=== PATIENT | female | born 1960 | race Caucasian/White ===

== ENCOUNTER 2017-04-10 21:41 | Inpatient (IN) | payer MEDICAID, OTHER ==
[2017-04-10 22:42] LABS: BASO % 0.9 % (0.0-2.0); EOS # 0.1 K/uL (0.0-0.7); HEMATOCRIT 26.9 % (34.0-47.0); LYMPH # 0.9 K/uL (1.0-4.3); LYMPH % 34.2 % (20.0-40.0); MEAN CELL VOLUME 79.3 fl (81.0-99.0); MEAN CORPUSCULAR HEMOGLOBIN 26.6 pg (27.0-31.0); MEAN CORPUSCULAR HGB CONC 33.6 g/dL (33.0-37.0); MEAN PLATELET VOLUME 7.8 fl (7.2-11.7); MONO # 0.4 K/uL (0.0-0.8); NEUT # 1.1 K/uL (1.8-7.0); NEUT % 42.9 % (50.0-75.0); NRBC % 0.2 % (0.0-0.0); RED CELL DISTRIBUTION WIDTH 16.6 % (11.5-14.5); WHITE BLOOD COUNT 2.5 K/uL (4.8-10.8)
--- NOTE | 2017-04-11 00:26 | ED PDOC ---
HPI: Nose Bleed Time Seen by Provider: 04/10/17 21:59 Chief Complaint (Nursing): ENT Problem History Per: Patient History/Exam Limitations: no limitations Onset/Duration Of Symptoms: Hrs Current Symptoms Are (Timing): Gone Now Location Of Bleeding: Both Nares Symptoms Have Been: Episodic Severity: Severe Associated Symptoms: Nasal Congestion. denies: Syncope, Lightheadedness, Bleeding From Gums, Nasal Drainage Anticoagulant/Antiplatlet Use?: No Recent Aspirin Use: No Additional Complaint(s): 56 y/o female who presents to the ED this evening complaining of heavy epistaxis that began 2 hours [facility] [employer]. Yesterday, she notes a small amount of nasal congestion and feels she may have cut herself when she rubbed her nose. On arrival, her bleeding resolved. No fever, chest pain, shortness of breath, antiplatelet use or ASA. PMD: Dr. Lucia - [place] Past Medical History Vital Signs: Last Vital Signs Temp 98.2 F 04/10/17 23:20 Pulse 92 H 04/10/17 23:20 Resp 18 04/10/17 23:20 BP 143/89 04/10/17 23:20 Pulse Ox 99 04/10/17 23:20 - Medical History PMH: Anxiety, Arthritis, HTN - Surgical History Surgical History: No Surg Hx - Family History Family History: States: Unknown Family Hx - Social History Current smoker - smoking cessation education provided: No Ex-Smoker (has not smoked in the last 12 months): No - Immunization History Hx Tetanus Toxoid Vaccination: No Hx Influenza Vaccination: No Hx Pneumococcal Vaccination: No - Home Medications Home Medications: Ambulatory Orders Medication Instructions Recorded Ergocalciferol (Vitamin D2) 1 tab PO DAILY 04/10/17 [Vitamin D2] Folic Acid 1 tab PO DAILY 04/10/17 Losartan/Hydrochlorothiazide 1 tab PO DAILY 04/10/17 [Losartan-Hctz 100-25 mg Tab] - Allergies Allergies/Adverse Reactions: Allergies Allergy/AdvReac Type Severity Reaction Status Date / Time No Known Allergies Allergy Unverified 02/14/14 14:41 Review of Systems ROS Statement: Except As Marked, All Systems Reviewed And Found Negative ENT: Positive for: Other (nose bleed) Physical Exam - Reviewed Nursing Documentation Reviewed: Yes Vital Signs Reviewed: Yes - Physical Exam Appears: Positive for: Well, Non-toxic, No Acute Distress Head Exam: Positive for: ATRAUMATIC, NORMAL INSPECTION, NORMOCEPHALIC Skin: Positive for: Normal Color, Warm. Negative for: Pallor, Cyanosis Eye Exam: Positive for: EOMI, Normal appearance, PERRL ENT: Positive for: Normal ENT Inspection. Negative for: Nasal Congestion ( dried blood on nare. No hematoma, or current epistaxis) Neck: Positive for: Normal, Painless ROM Cardiovascular/Chest: Positive for: Regular Rate, Rhythm Respiratory: Positive for: CNT, Normal Breath Sounds Gastrointestinal/Abdominal: Positive for: Normal Exam, Bowel Sounds, Soft Back: Positive for: Normal Inspection Extremity: Positive for: Normal ROM Neurologic/Psych: Positive for: Alert, Oriented - Laboratory Results Result Diagrams: 04/13/17 05:45 04/13/17 05:45 - ECG ECG Rhythm: Positive for: Normal QRS, Normal ST Segment, Sinus Rhythm (86). Negative for: ST/T Changes O2 Sat by Pulse Oximetry: 99 Medical Decision Making Medical Decision Making: Impression: 56 y/o female with Epistaxis Plan - Labs CBC reviewed and shows WBC at 2.5, HGB 9.1, platelets 68,000. Discussed results with patient who believes she had been told that her HGB was low in the past, but denies and work up. She further denies any bleeding from gums or rectum, as well as bloody emesis. Will admit to Dr. Ferguson. JÚNIOR Tracy interpreted in Danish as per pt request to ensure understanding. 03:29: After multiple attempts to contact Dr. Ferguson, the patient will be admitted to [facility]. Call placed to Dr. Yun. 03:48: patient admitted for futher hematologic workup Scribe Attestation: Documented by Livier Brown acting as a scribe for Rica Marcos MD. Scribe Attestation: All medical record entries made by the Scribe were at my direction and personally dictated by me. I have reviewed the chart and agree that the record accurately reflects my personal performance of the history, physical exam, medical decision making, and the department course for this patient. I have also personally directed, reviewed, and agree with the discharge instructions and disposition. Disposition - Clinical Impression Clinical Impression: Epistaxis - Patient ED Disposition Is Patient to be Admitted: Yes Doctor Will See Patient In The: Hospital Counseled Patient/Family Regarding: Studies Performed, Diagnosis - Disposition Disposition: Routine/Home Disposition Time: 22:35 Condition: IMPROVED
[2017-04-11 00:36] LABS: ALB/GLOB RATIO 0.6 (1.0-2.1); ALKALINE PHOSPHATASE 181 U/L (38-126); ALT/SGPT 70 U/L (9-52); AST/SGOT 93 U/L (14-36); BILIRUBIN,TOTAL 0.5 mg/dl (0.2-1.3); BLOOD UREA NITROGEN 13 mg/dl (7-17); CALCIUM 9.7 mg/dL (8.4-10.2); CARBON DIOXIDE 30 mmol/L (22-30); CHLORIDE 101 mmol/L (98-107); GFR AFRICAN-AMERICAN > 60; GLUCOSE,RANDOM 140 mg/dL (65-105); POTASSIUM 3.7 MMOL/L (3.6-5.0); SODIUM 134 mmol/l (132-148)
[2017-04-11 04:18] LABS: PARTIAL THROMBOPLASTIN TIME 41.4 Seconds (25.6-37.1)
[2017-04-11] MEDS ORDERED: Patient's Own Med (Losartan/Hydrochlorothiazide [Losartan-Hctz 100-25 Mg Tab] 1 TAB) PO SCH (09:00)
[2017-04-11] MEDS ORDERED: ERGOCALCIFEROL PO SCH (09:00)
[2017-04-11] MEDS ORDERED: APROTININ/FIBRINOGEN(TISSEEL) ONE (10:19)
[2017-04-11] MEDS ORDERED: Absorbable Gelatin Sponge Size 12-7 TP ONE (10:20)
[2017-04-11] MEDS ORDERED: Absorbable Gelatin Sponge Size 100 TP ONE (10:20)
--- NOTE | 2017-04-11 10:38 | RAD ---
HISTORY: nosebleed COMPARISON: No prior. FINDINGS: LUNGS: Poor inspiration with low lung volumes, crowded bronchovascular markings and mild bibasilar atelectasis. PLEURA: No significant pleural effusion identified, no pneumothorax apparent. CARDIOVASCULAR: Normal. OSSEOUS STRUCTURES: Mild dextroscoliosis centered at the in the lower thoracic region. VISUALIZED UPPER ABDOMEN: Normal. OTHER FINDINGS: None. IMPRESSION: Poor inspiration with low lung volumes, crowded bronchovascular markings and mild bibasilar atelectasis.
--- NOTE | 2017-04-11 11:27 | CARD ---
APPROVED REPORT EKG Measurement Heart [id number] <Conclusion> Normal sinus rhythm Normal ECG
--- NOTE | 2017-04-11 12:34 | CP.PCM.HP ---
History of Present Illness - History of Present Illness History of Present Illness: This is a 56 y/o female with hx of anemia was admitted for persistent copious epistaxis few hours prior to ER visit. She had never had any episode in the past. She was told to have anemia but platelet count at ER was 68,000. She denies any use of any anticoagulant or ASA. Patient apparently had lost some weight over the past few years. She lives alone Her last unprotected sex was 6 months ago. Present on Admission - Present on Admission Any Indicators Present on Admission: No History of DVT/PE: No History of Uncontrolled Diabetes: No Urinary Catheter: No Decubitus Ulcer Present: No Past Patient History - Past Medical History & Family History Past Medical History?: Yes - Past Social History Smoking Status: Never Smoked - CARDIAC Hx Cardiac Disorders: Yes (HTN) Hx Hypertension: Yes - PULMONARY Hx Respiratory Disorders: No - NEUROLOGICAL Hx Neurological Disorder: No - HEENT Hx HEENT Problems: Yes Hx Epistaxis: Yes - RENAL Hx Chronic Kidney Disease: No - ENDOCRINE/METABOLIC Hx Endocrine Disorders: No - HEMATOLOGICAL/ONCOLOGICAL Hx Blood Disorders: No - INTEGUMENTARY Hx Dermatological Problems: No - MUSCULOSKELETAL/RHEUMATOLOGICAL Hx Musculoskeletal Disorders: Yes Hx Arthritis: Yes Hx Falls: No - GASTROINTESTINAL Hx Gastrointestinal Disorders: No - GENITOURINARY/GYNECOLOGICAL Hx Genitourinary Disorders: No - PSYCHIATRIC Hx Psychophysiologic Disorder: Yes Hx Anxiety: Yes Hx Substance Use: No - SURGICAL HISTORY Hx Surgeries: Yes Other/Comment: Patient states she had "cyst removal from the womb, but does not know what type of surgery." - ANESTHESIA Hx Anesthesia: No Hx Anesthesia Reactions: No Hx Malignant Hyperthermia: No Meds Allergies/Adverse Reactions: Allergies Allergy/AdvReac Type Severity Reaction Status Date / Time No Known Allergies Allergy Unverified 02/14/14 14:41 Physical Exam - Head Exam Head Exam: NORMAL INSPECTION - Eye Exam Eye Exam: Normal appearance - ENT Exam Additional comments: clotted blood in the left nostril. - Respiratory Exam Respiratory Exam: Clear to Auscultation Bilateral - Cardiovascular Exam Cardiovascular Exam: REGULAR RHYTHM - GI/Abdominal Exam GI & Abdominal Exam: Normal Bowel Sounds - Neurological Exam Neurological exam: Oriented x3 Results - Vital Signs Recent Vital Signs: Last Vital Signs Temp 97.9 F 04/11/17 07:49 Pulse 87 04/11/17 08:37 Resp 19 04/11/17 07:49 BP 147/83 04/11/17 08:37 Pulse Ox 97 04/11/17 07:49 - Labs Result Diagrams: 04/10/17 22:42 04/11/17 00:14 Assessment & Plan (1) Epistaxis Status: Acute (2) Pancytopenia Status: Acute (3) Abnormal liver enzymes Status: Acute - Assessment and Plan (Free Text) Plan: will do US of the abd liver spleen check PT PTT repeat labs in am hematology eval HIV test hep A B C
--- NOTE | 2017-04-11 17:25 | CP.PCM.PN ---
Subjective - Date & Time of Evaluation Date of Evaluation: 04/11/17 Time of Evaluation: 10:00 - Subjective Subjective: see below Objective - Vital Signs/Intake and Output Vital Signs (last 24 hours): Temp Pulse Resp BP Pulse Ox 98.5 F 85 18 144/82 98 04/11/17 16:37 04/11/17 16:37 04/11/17 16:37 04/11/17 16:37 04/11/17 16:37 - Medications Medications: Current Medications Acetaminophen (Tylenol 325mg Tab) 650 mg PO Q4 PRN PRN Reason: Pain, moderate (4-7) Cholecalciferol (Vitamin D) 2,000 iu PO DAILY [facility] Last Admin: 04/11/17 08:37 Dose: 2,000 iu Folic Acid (Folic Acid) 1 mg PO DAILY [facility] Last Admin: 04/11/17 08:38 Dose: 1 mg Hydrochlorothiazide (Hydrodiuril) 25 mg PO DAILY [facility] Last Admin: 04/11/17 08:37 Dose: 25 mg Losartan Potassium (Cozaar) 100 mg PO DAILY [facility] Last Admin: 04/11/17 08:37 Dose: 100 mg Oxymetazoline HCl (Nasal Decongestant 15 Ml) 2 spr NS BID [facility] Stop: 04/14/17 17:00 - Labs Labs: PT 12.8 Seconds (9.8-13.1) 04/11/17 00:14 INR 1.2 (0.9-1.2) 04/11/17 00:14 APTT 41.4 Seconds (25.6-37.1) H 04/11/17 00:14 Assessment and Plan - Assessment and Plan (Free Text) Assessment: History of Present Illness 56 y/o female admitted with right epistaxis yesterday, self resolved. CBC showed pancytopenia. she is admitted for further w/u. she denies recurrent problems with nose bleeding. no further bleeding since bein admitted. Past Medical History denies Allergies nkda Family and Social Hx no-contributory Review of Systems see HPI Exam awake, alert, comfortable oc/op clear; no blood in oropharynx neck soft, no tenderness, trachea midline nose:old blood in the right nasal cavity; this was suctioned under direct endoscopic visualization to reveal superficial vessels on the right anterior/ mid septum, some of which actively bled. remainer of nasal endoscopy normal on both sides without mass, lesion or other source of bleeding in b/l nasal cavities and nasopharynx. after topically anesthetizing the right septum with 4 % Lidocaine, the area of active bleeding was cauterized with silver nitrate under endoscopic visualization. care was taken to avoid concomitant contact of the inferior turbinate. patient tolerated procedure well. no complications. plt 68 Impression right epistaxis, s/p cautery thrombocytopenia Recommend epistaxis precautions d/w patient and her niece, who was present and assisted with translation Afrin for 3 days only heme w/u ongoing call if bleeds
--- NOTE | 2017-04-12 01:08 | CP.PCM.CON ---
History of Present Illness - History of Present Illness History of Present Illness: 56 year old female with a history of HTN, presenting with epistaxis s/p cautery , found to be pancytopenic. The patient is unaware of having blood problems in the past. She reports to heavy nose bleeding today. She feels she may have rubbed her nose too hard which led to the bleeding. She denies abnormal bleeding and bruising. Past medical history: HTN Past surgical history: Uterine fibroid resection Family history: Denies hematologic and oncologic problems Social history: Denies tobacco, alcohol, and illicit drug use. Allergies: NKA Review of systems: All remaining review of systems including HEENT, cardiovascular, respiratory, gastrointestinal, genitourinary, musculoskeletal, dermatologic, neurologic, and psychiatric are negative unless mentioned in the HPI. Past Patient History - Past Medical History & Family History Past Medical History?: Yes - Past Social History Smoking Status: Never Smoked - CARDIAC Hx Cardiac Disorders: Yes (HTN) Hx Hypertension: Yes - PULMONARY Hx Respiratory Disorders: No - NEUROLOGICAL Hx Neurological Disorder: No - HEENT Hx HEENT Problems: Yes Hx Epistaxis: Yes - RENAL Hx Chronic Kidney Disease: No - ENDOCRINE/METABOLIC Hx Endocrine Disorders: No - HEMATOLOGICAL/ONCOLOGICAL Hx Blood Disorders: No - INTEGUMENTARY Hx Dermatological Problems: No - MUSCULOSKELETAL/RHEUMATOLOGICAL Hx Musculoskeletal Disorders: Yes Hx Arthritis: Yes Hx Falls: No - GASTROINTESTINAL Hx Gastrointestinal Disorders: No - GENITOURINARY/GYNECOLOGICAL Hx Genitourinary Disorders: No - PSYCHIATRIC Hx Psychophysiologic Disorder: Yes Hx Anxiety: Yes Hx Substance Use: No - SURGICAL HISTORY Hx Surgeries: Yes Other/Comment: Patient states she had "cyst removal from the womb, but does not know what type of surgery." - ANESTHESIA Hx Anesthesia: No Hx Anesthesia Reactions: No Hx Malignant Hyperthermia: No Meds Allergies/Adverse Reactions: Allergies Allergy/AdvReac Type Severity Reaction Status Date / Time No Known Allergies Allergy Unverified 02/14/14 14:41 - Medications Medications: Current Medications Acetaminophen (Tylenol 325mg Tab) 650 mg PO Q4 PRN PRN Reason: Pain, moderate (4-7) Cholecalciferol (Vitamin D) 2,000 iu PO DAILY [facility] Last Admin: 04/11/17 08:37 Dose: 2,000 iu Folic Acid (Folic Acid) 1 mg PO DAILY [facility] Last Admin: 04/11/17 08:38 Dose: 1 mg Hydrochlorothiazide (Hydrodiuril) 25 mg PO DAILY [facility] Last Admin: 04/11/17 08:37 Dose: 25 mg Losartan Potassium (Cozaar) 100 mg PO DAILY [facility] Last Admin: 04/11/17 08:37 Dose: 100 mg Oxymetazoline HCl (Nasal Decongestant 15 Ml) 2 spr NS BID [facility] Stop: 04/14/17 17:00 Physical Exam - Head Exam Head Exam: ATRAUMATIC - Eye Exam Eye Exam: Normal appearance - ENT Exam ENT Exam: Mucous Membranes Dry - Respiratory Exam Respiratory Exam: NORMAL BREATHING PATTERN - Cardiovascular Exam Cardiovascular Exam: +S1, +S2 - GI/Abdominal Exam GI & Abdominal Exam: Normal Bowel Sounds - Extremities Exam Extremities exam: Positive for: normal inspection - Neurological Exam Neurological exam: Oriented x3 - Psychiatric Exam Psychiatric exam: Normal Affect, Normal Mood - Skin Skin Exam: Warm Results - Vital Signs Recent Vital Signs: Last Vital Signs Temp 98.5 F 04/11/17 17:00 Pulse 85 04/11/17 17:00 Resp 18 04/11/17 17:00 BP 144/82 04/11/17 17:00 Pulse Ox 98 04/11/17 17:00 - Labs Result Diagrams: 04/10/17 22:42 04/11/17 00:14 Labs: Laboratory Results - last 24 hr 04/11/17 13:50 HIV-1 Ab Rapid Screen Non reactive Assessment & Plan (1) Pancytopenia Assessment and Plan: f/u HIV and hepatitis panel will order US to evaluate liver and spleen ?splenomegaly ?liver dz no transfusion indication Status: Acute (2) Elevated total protein Assessment and Plan: will evaluate for monoclonal protein Thank you for this interesting consult. Status: Acute
[2017-04-12 06:57] LABS: HEMATOCRIT 25.8 % (34.0-47.0); MEAN CELL VOLUME 78.3 fl (81.0-99.0); MEAN CORPUSCULAR HEMOGLOBIN 26.6 pg (27.0-31.0); MEAN CORPUSCULAR HGB CONC 33.9 g/dL (33.0-37.0); RED CELL DISTRIBUTION WIDTH 16.5 % (11.5-14.5)
[2017-04-12 07:24] LABS: WHITE BLOOD COUNT 2.3 K/uL (4.8-10.8)
[2017-04-12 10:30] LABS: ALB/GLOB RATIO 0.6 (1.0-2.1); ALKALINE PHOSPHATASE 174 U/L (38-126); ALT/SGPT 71 U/L (9-52); AST/SGOT 91 U/L (14-36); BILIRUBIN,TOTAL 0.5 mg/dl (0.2-1.3); BLOOD UREA NITROGEN 14 mg/dl (7-17); CARBON DIOXIDE 25 mmol/L (22-30); CHLORIDE 101 mmol/L (98-107); GFR AFRICAN-AMERICAN > 60; GLUCOSE,RANDOM 265 mg/dL (65-105); SODIUM 134 mmol/l (132-148); TOTAL PROTEIN 8.9 G/DL (6.3-8.2)
--- NOTE | 2017-04-12 11:05 | CP.PCM.PN ---
Subjective - Date & Time of Evaluation Date of Evaluation: 04/12/17 Time of Evaluation: 11:05 - Subjective Subjective: Noted decrease in HGb. platelet and WBC. Still with persistently high liver enz Discussed with Dr Kaye and plans bone marrow. US done today. Objective - Vital Signs/Intake and Output Vital Signs (last 24 hours): Temp Pulse Resp BP Pulse Ox 98.6 F 87 18 138/75 97 04/12/17 08:26 04/12/17 09:20 04/12/17 08:26 04/12/17 09:20 04/12/17 08:26 - Medications Medications: Current Medications Acetaminophen (Tylenol 325mg Tab) 650 mg PO Q4 PRN PRN Reason: Pain, moderate (4-7) Cholecalciferol (Vitamin D) 2,000 iu PO DAILY [facility] Last Admin: 04/12/17 09:21 Dose: 2,000 iu Folic Acid (Folic Acid) 1 mg PO DAILY [facility] Last Admin: 04/12/17 09:20 Dose: 1 mg Hydrochlorothiazide (Hydrodiuril) 25 mg PO DAILY [facility] Last Admin: 04/12/17 09:20 Dose: 25 mg Losartan Potassium (Cozaar) 100 mg PO DAILY [facility] Last Admin: 04/12/17 09:20 Dose: 100 mg Oxymetazoline HCl (Nasal Decongestant 15 Ml) 2 spr NS BID [facility] Stop: 04/14/17 17:00 Last Admin: 04/12/17 09:20 Dose: 2 spr - Labs Labs: 04/12/17 04:50 04/12/17 10:10 PT 12.8 Seconds (9.8-13.1) 04/11/17 00:14 INR 1.2 (0.9-1.2) 04/11/17 00:14 APTT 41.4 Seconds (25.6-37.1) H 04/11/17 00:14 - Head Exam Head Exam: NORMAL INSPECTION - Eye Exam Eye Exam: Normal appearance - ENT Exam ENT Exam: Mucous Membranes Moist - Respiratory Exam Respiratory Exam: Clear to Ausculation Bilateral - Cardiovascular Exam Cardiovascular Exam: REGULAR RHYTHM - GI/Abdominal Exam GI & Abdominal Exam: Normal Bowel Sounds Assessment and Plan (1) Epistaxis Status: Acute (2) Pancytopenia Status: Acute (3) Abnormal liver enzymes Status: Acute - Assessment and Plan (Free Text) Plan: cont meds con tx repeat cbc cmp in am discussed with Dr Kaye and suggested possible bone marrow biopsy
--- NOTE | 2017-04-12 14:21 | US ---
HISTORY: Pancytopenia. , transaminitis; eval liver and spleen COMPARISON: No prior study available for comparison TECHNIQUE: Sonographic evaluation of the abdomen. FINDINGS: LIVER: Demonstrates approximately 17 cm in CC dimension. . Liver demonstrates smooth contour and normal echogenicity of the liver parenchyma. No mass. No intrahepatic bile duct dilatation. . No evidence of ascites. GALLBLADDER: Multiple non mobile and non shadowing echogenic foci within the gallbladder lumen which appear to be adherent to the gallbladder wall, possibly representing sludge balls or noncalcified stones. Gallbladder appears incompletely distended (possibly due to nonfasting state) which may in part account for thick-walled appearance . Questionable mild wall edema versus tiny amount of pericholecystic fluid. The possibility of mild chronic inflammation of the gallbladder wall not excluded. No evidence of sonographic Francois sign COMMON BILE DUCT: Measures common bile duct is dilated measuring approximately 7.8 mm. No stones. No dilatation. PANCREAS: Visualized portions of the pancreas appear grossly unremarkable. RIGHT KIDNEY: Measures approximately 10.6 x 7.0 x 4.8cm. Normal echogenicity. No calculus, mass, or hydronephrosis. LEFT KIDNEY: Measures approximately 11.7 x 6.2 x 4.8cm. Normal echogenicity. No calculus, mass, or hydronephrosis. SPLEEN: Spleen is enlarged measuring nearly 15 cm in greatest dimension. No splenic mass collection or calcification. AORTA: No aneurysmal dilatation. The small amount of atherosclerotic plaque seen along the posterior wall of the abdominal aorta. IVC: Unremarkable. OTHER FINDINGS: None. IMPRESSION: Multiple non mobile and non shadowing echogenic foci within the gallbladder lumen which appear to be adherent to the gallbladder wall, possibly representing sludge balls or noncalcified stones. . Gallbladder appears incompletely distended (possibly due to nonfasting state) which may in part account for thick-walled appearance . Questionable mild wall edema versus tiny amount of pericholecystic fluid. The possibility of mild chronic inflammation of the gallbladder wall not excluded. No evidence of sonographic Francois sign Splenomegaly.
[2017-04-12 17:33] LABS: FOLATE > 20.0 ng/mL
--- NOTE | 2017-04-12 23:16 | CP.PCM.PN ---
Subjective - Date & Time of Evaluation Date of Evaluation: 04/12/17 Time of Evaluation: 12:00 - Subjective Subjective: Cont. pancytopenia elevated total protein and globulin gap awaiting US abd results for bone marrow biopsy in AM Objective - Vital Signs/Intake and Output Vital Signs (last 24 hours): Temp Pulse Resp BP Pulse Ox 97.6 F 92 H 18 133/76 98 04/12/17 17:00 04/12/17 16:08 04/12/17 16:08 04/12/17 16:08 04/12/17 16:08 - Medications Medications: Current Medications Acetaminophen (Tylenol 325mg Tab) 650 mg PO Q4 PRN PRN Reason: Pain, moderate (4-7) Cholecalciferol (Vitamin D) 2,000 iu PO DAILY [facility] Last Admin: 04/12/17 09:21 Dose: 2,000 iu Folic Acid (Folic Acid) 1 mg PO DAILY [facility] Last Admin: 04/12/17 09:20 Dose: 1 mg Hydrochlorothiazide (Hydrodiuril) 25 mg PO DAILY [facility] Last Admin: 04/12/17 09:20 Dose: 25 mg Losartan Potassium (Cozaar) 100 mg PO DAILY [facility] Last Admin: 04/12/17 09:20 Dose: 100 mg Oxymetazoline HCl (Nasal Decongestant 15 Ml) 2 spr NS BID [facility] Stop: 04/14/17 17:00 Last Admin: 04/12/17 16:07 Dose: 2 spr - Labs Labs: 04/12/17 04:50 04/12/17 10:10 PT 12.8 Seconds (9.8-13.1) 04/11/17 00:14 INR 1.2 (0.9-1.2) 04/11/17 00:14 APTT 41.4 Seconds (25.6-37.1) H 04/11/17 00:14 - Head Exam Head Exam: ATRAUMATIC - Eye Exam Eye Exam: Normal appearance - ENT Exam ENT Exam: Mucous Membranes Dry - Respiratory Exam Respiratory Exam: NORMAL BREATHING PATTERN - Cardiovascular Exam Cardiovascular Exam: +S1, +S2 - GI/Abdominal Exam GI & Abdominal Exam: Normal Bowel Sounds Assessment and Plan (1) Pancytopenia Status: Acute (2) Elevated total protein Status: Acute
[2017-04-13] MEDS ORDERED: Dextrose 5%/0.45% NS 1,000 ML IV SCH (01:00)
[2017-04-13 01:29] VITALS: TEMP 98.5
[2017-04-13 06:06] LABS: BASO % 0.9 % (0.0-2.0); EOS # 0.1 K/uL (0.0-0.7); HEMATOCRIT 27.5 % (34.0-47.0); LYMPH # 1.1 K/uL (1.0-4.3); LYMPH % 55.3 % (20.0-40.0); MEAN CELL VOLUME 79.7 fl (81.0-99.0); MEAN CORPUSCULAR HGB CONC 32.6 g/dL (33.0-37.0); MEAN PLATELET VOLUME 7.6 fl (7.2-11.7); MONO # 0.4 K/uL (0.0-0.8); MONO % 19.6 % (0.0-10.0); NEUT # 0.4 K/uL (1.8-7.0); NEUT % 18.2 % (50.0-75.0); NRBC % 0.2 % (0.0-0.0)
[2017-04-13 06:21] LABS: ALB/GLOB RATIO 0.6 (1.0-2.1); ALKALINE PHOSPHATASE 154 U/L (38-126); ALT/SGPT 63 U/L (9-52); AST/SGOT 69 U/L (14-36); BILIRUBIN,TOTAL 0.5 mg/dl (0.2-1.3); BLOOD UREA NITROGEN 13 mg/dl (7-17); CALCIUM 9.3 mg/dL (8.4-10.2); CARBON DIOXIDE 28 mmol/L (22-30); CHLORIDE 102 mmol/L (98-107); GFR AFRICAN-AMERICAN > 60; GLUCOSE,RANDOM 163 mg/dL (65-105); POTASSIUM 3.6 MMOL/L (3.6-5.0); SODIUM 136 mmol/l (132-148); TOTAL PROTEIN 8.3 G/DL (6.3-8.2)
[2017-04-13 08:10] VITALS: BP 130/77; PULSE 65; RESP 18; O2SAT 99
[2017-04-13] MEDS ORDERED: Lidocaine 2% Inj (20ml) ONE (09:21)
[2017-04-13 10:19] LABS: HEMATOCRIT 28.4 % (35.0-45.0); HEMOGLOBIN 9.2 g/dL (11.7-15.5); RDW 16.8 % (11.0-15.0)
--- NOTE | 2017-04-13 13:12 | CP.PCM.PN ---
Subjective - Date & Time of Evaluation Date of Evaluation: 04/13/17 Time of Evaluation: 11:00 - Subjective Subjective: Bone marrow aspirate and biopsy procedure note. Time-out was called to confirm: patients name and date of , procedure, side and site of biopsy, safety procedures followed. - Informed consent: signed by patient. - Aspiration and biopsy site: [left] superior posterior iliac crest. - Patient position: [prone] - Preparation and technique: sterile preparation of site with Betadyne, Chloraprep, draped to expose aspirate/biopsy area, local anesthesia with 2% lidocaine (approximately 10ml), frequent pressure application on incision to maintain hemostasis. - Tissue obtained: bone marrow aspirate and biopsy were successfully obtained in sterile manner. - Toleration of procedure and any complications: slight localized bleeding (<1ml ). Patient tolerated procedure well with minimal pain. Objective - Vital Signs/Intake and Output Vital Signs (last 24 hours): Temp Pulse Resp BP Pulse Ox 98.5 F 65 18 130/77 99 04/13/17 08:09 04/13/17 08:21 04/13/17 08:09 04/13/17 08:21 04/13/17 08:09 - Medications Medications: Current Medications Acetaminophen (Tylenol 325mg Tab) 650 mg PO Q4 PRN PRN Reason: Pain, moderate (4-7) Cholecalciferol (Vitamin D) 2,000 iu PO DAILY [facility] Last Admin: 04/13/17 08:22 Dose: 2,000 iu Folic Acid (Folic Acid) 1 mg PO DAILY [facility] Last Admin: 04/13/17 08:21 Dose: 1 mg Hydrochlorothiazide (Hydrodiuril) 25 mg PO DAILY [facility] Last Admin: 04/13/17 08:22 Dose: 25 mg Dextrose/Sodium Chloride (Dextrose 5%/0.45% Ns 1000 Ml) 1,000 mls @ 80 mls/hr IV .[id number] [facility] Stop: 04/14/17 00:38 Last Admin: 04/13/17 01:35 Dose: 80 mls/hr Losartan Potassium (Cozaar) 100 mg PO DAILY [facility] Last Admin: 04/13/17 08:21 Dose: 100 mg Oxymetazoline HCl (Nasal Decongestant 15 Ml) 2 spr NS BID [facility] Stop: 04/14/17 17:00 Last Admin: 04/13/17 08:22 Dose: 2 spr - Labs Labs: 04/13/17 05:45 04/13/17 05:45 PT 12.8 Seconds (9.8-13.1) 04/11/17 00:14 INR 1.2 (0.9-1.2) 04/11/17 00:14 APTT 41.4 Seconds (25.6-37.1) H 04/11/17 00:14 - Head Exam Head Exam: ATRAUMATIC - Eye Exam Eye Exam: Normal appearance - ENT Exam ENT Exam: Mucous Membranes Dry - Respiratory Exam Respiratory Exam: NORMAL BREATHING PATTERN - Cardiovascular Exam Cardiovascular Exam: +S1, +S2 - GI/Abdominal Exam GI & Abdominal Exam: Normal Bowel Sounds - Extremities Exam Extremities Exam: Normal Inspection Assessment and Plan (1) Pancytopenia Assessment & Plan: s/p bone marrow aspirate and biopsy outpatient f/u in 2 weeks Status: Acute (2) Elevated total protein Status: Acute
--- NOTE | 2017-04-13 14:53 | CP.PCM.PCO ---
Assessment/Plan - Assessment/Plan Assessment (Free Text): Pt stable, seen and cleared for d/c home by Dr. Yun and Dr. Kaye. Pt is s/p bone marrow aspiration by Dr. Kaye. Pt to f/u with Dr. Kaye within 1 week. Pt cleared by Dr. Mooney. Pt in no distress for d/c home - Problems Patient Problems: Problem List (Active/Current) Problem Status Onset Code Abnormal liver enzymes Acute R74.8 Elevated total protein Acute R77.8 Epistaxis Acute R04.0 Pancytopenia Acute D61.818
--- NOTE | 2017-04-13 17:00 | CP.PCM.DIS ---
<Moraima Moses - Last Filed: 04/14/17 01:18> Provider - Provider Date of Admission: 04/11/17 03:33 Attending physician: Jef Yun MD Primary care physician: Dr. Schroeder Consults: Hematology: Dr. Kaye Time Spent in preparation of Discharge (in minutes): 35 Diagnosis - Discharge Diagnosis (1) Epistaxis Status: Resolved (2) Pancytopenia Status: Acute Comment: s/p bone marrow biopsy. patient to follow up with Dr. Kaye outpatient (3) Abnormal liver enzymes Status: Acute Hospital Course - Lab Results Lab Results: Most Recent Lab Values WBC 2.0 K/uL (4.8-10.8) L* 04/13/17 05:45 RBC 3.45 Mil/uL (3.80-5.20) L 04/13/17 05:45 Hgb 9.0 g/dL (12.0-16.0) L 04/13/17 05:45 Hct 27.5 % (34.0-47.0) L 04/13/17 05:45 MCV 79.7 fl (81.0-99.0) L 04/13/17 05:45 MCH 26.0 pg (27.0-31.0) L 04/13/17 05:45 MCHC 32.6 g/dL (33.0-37.0) L 04/13/17 05:45 RDW 17.0 % (11.5-14.5) H 04/13/17 05:45 Plt Count 64 K/uL (130-400) L 04/13/17 05:45 MPV 7.6 fl (7.2-11.7) 04/13/17 05:45 Neut % (Auto) 18.2 % (50.0-75.0) L 04/13/17 05:45 Lymph % (Auto) 55.3 % (20.0-40.0) H 04/13/17 05:45 [place] % (Auto) 19.6 % (0.0-10.0) H 04/13/17 05:45 Eos % (Auto) 6.0 % (0.0-4.0) H 04/13/17 05:45 Baso % (Auto) 0.9 % (0.0-2.0) 04/13/17 05:45 Neut # 0.4 K/uL (1.8-7.0) L 04/13/17 05:45 Lymph # 1.1 K/uL (1.0-4.3) 04/13/17 05:45 [place] # 0.4 K/uL (0.0-0.8) 04/13/17 05:45 Eos # 0.1 K/uL (0.0-0.7) 04/13/17 05:45 Baso # 0.0 K/uL (0.0-0.2) 04/13/17 05:45 Retic Count 1.3 % (0.5-1.5) 04/12/17 04:50 Hemoglobinopathy Red Blood Count 3.59 Mill/mcL (3.80-5.10) L 04/12/17 04:50 Hemoglobinopathy Hct 28.4 % (35.0-45.0) L 04/12/17 04:50 Hemoglobinopathy Hgb 9.2 g/dL (11.7-15.5) L 04/12/17 04:50 Hemoglobinopathy MCV 79.1 fL (80.0-100.0) L 04/12/17 04:50 Hemoglobinopathy MCH 25.7 pg (27.0-33.0) L 04/12/17 04:50 Hemoglobinopathy RDW 16.8 % (11.0-15.0) H 04/12/17 04:50 PT 12.8 Seconds (9.8-13.1) 04/11/17 00:14 INR 1.2 (0.9-1.2) 04/11/17 00:14 APTT 41.4 Seconds (25.6-37.1) H 04/11/17 00:14 Sodium 136 mmol/l (132-148) 04/13/17 05:45 Potassium 3.6 MMOL/L (3.6-5.0) 04/13/17 05:45 Chloride 102 mmol/L (98-107) 04/13/17 05:45 Carbon Dioxide 28 mmol/L (22-30) 04/13/17 05:45 Anion Gap 9 (10-20) L 04/13/17 05:45 BUN 13 mg/dl (7-17) 04/13/17 05:45 Creatinine 0.6 mg/dL (0.7-1.2) L 04/13/17 05:45 Est GFR ( Amer) > 60 04/13/17 05:45 Est GFR (Non-Af Amer) > 60 04/13/17 05:45 Random Glucose 163 mg/dL (65-105) H 04/13/17 05:45 Calcium 9.3 mg/dL (8.4-10.2) 04/13/17 05:45 Ferritin 48.7 ng/mL 04/12/17 04:50 Total Bilirubin 0.5 mg/dl (0.2-1.3) 04/13/17 05:45 AST 69 U/L (14-36) H D 04/13/17 05:45 ALT 63 U/L (9-52) H 04/13/17 05:45 Alkaline Phosphatase 154 U/L (38-126) H 04/13/17 05:45 Total Protein 8.3 G/DL (6.3-8.2) H 04/13/17 05:45 Albumin 3.0 g/dL (3.5-5.0) L 04/13/17 05:45 Globulin 5.3 gm/dL (2.2-3.9) H 04/13/17 05:45 Albumin/Globulin Ratio 0.6 (1.0-2.1) L 04/13/17 05:45 Vitamin B12 675 pg/mL (239-931) 04/12/17 04:50 Folate > 20.0 ng/mL 04/12/17 04:50 Hepatitis A IgM Ab Negative (NEGATIVE) 04/11/17 13:50 Hep Bs Antigen Negative (NEGATIVE) 04/11/17 13:50 Hep B Core IgM Ab Negative (NEGATIVE) 04/11/17 13:50 Hepatitis C Antibody Negative (NEGATIVE) 04/11/17 13:50 HIV-1 Ab Rapid Screen Non reactive (NON REAC) 04/11/17 13:50 Blood Type O POSITIVE 04/11/17 00:17 Antibody Screen Negative 04/11/17 00:17 BBK History Checked Patient has bt 04/11/17 00:17 - Hospital Course Hospital Course: Patient seen and examined with attending. 56 year old female admitted with epistaxis found to have pancytopenia. Patient was seen and evaluated by hematology/oncology, Dr. Kaye. She is s/p bone marrow biopsy. Elevated protein and globulins. Pt stable for d/c. She is to follow up outpatient with Dr. Schroeder (PCP) and Dr. Kaye. - Date & Time of H&P Date of H&P: 04/11/17 Time of H&P: 12:32 Discharge Exam - Head Exam Head Exam: ATRAUMATIC - Eye Exam Eye Exam: EOMI, Normal appearance, PERRL - ENT Exam ENT Exam: Mucous Membranes Moist - Respiratory Exam Respiratory Exam: NORMAL BREATHING PATTERN - Cardiovascular Exam Cardiovascular Exam: REGULAR RHYTHM, +S1, +S2. absent: Bradycardia, Tachycardia - GI/Abdominal Exam GI & Abdominal Exam: Normal Bowel Sounds, Soft, Unremarkable. absent: Distended , Tenderness - Rectal Exam Rectal Exam: Deferred - Extremities Exam Additional comments: No tenderness - Neurological Exam Neurological exam: Alert, Normal Gait, Oriented x3 - Psychiatric Exam Psychiatric exam: Normal Affect, Normal Mood - Skin Skin Exam: Dry, Intact, Pallor Discharge Plan - Follow Up Plan Condition: GOOD Disposition: HOME/ ROUTINE Instructions: Nosebleed (GEN), Bone Marrow Biopsy (DC) Additional Instructions: hacer collins con dr kaye dentbronson de 1 semana y con mehta doctor primario I was present during evaluation and discussed with Dr Moses re plans for discharge and follow up. Referrals: Anand Kaye MD [Staff Provider] - Russell Conley MD [Family Provider] - <Jef Yun - Last Filed: 04/14/17 06:57> Provider - Provider Date of Admission: 04/11/17 03:33 Attending physician: Jef Yun MD Diagnosis - Discharge Diagnosis (1) Pancytopenia Status: Acute (2) Abnormal liver enzymes Status: Acute Hospital Course - Lab Results Lab Results: Most Recent Lab Values WBC 2.0 K/uL (4.8-10.8) L* 04/13/17 05:45 RBC 3.45 Mil/uL (3.80-5.20) L 04/13/17 05:45 Hgb 9.0 g/dL (12.0-16.0) L 04/13/17 05:45 Hct 27.5 % (34.0-47.0) L 04/13/17 05:45 MCV 79.7 fl (81.0-99.0) L 04/13/17 05:45 MCH 26.0 pg (27.0-31.0) L 04/13/17 05:45 MCHC 32.6 g/dL (33.0-37.0) L 04/13/17 05:45 RDW 17.0 % (11.5-14.5) H 04/13/17 05:45 Plt Count 64 K/uL (130-400) L 04/13/17 05:45 MPV 7.6 fl (7.2-11.7) 04/13/17 05:45 Neut % (Auto) 18.2 % (50.0-75.0) L 04/13/17 05:45 Lymph % (Auto) 55.3 % (20.0-40.0) H 04/13/17 05:45 [place] % (Auto) 19.6 % (0.0-10.0) H 04/13/17 05:45 Eos % (Auto) 6.0 % (0.0-4.0) H 04/13/17 05:45 Baso % (Auto) 0.9 % (0.0-2.0) 04/13/17 05:45 Neut # 0.4 K/uL (1.8-7.0) L 04/13/17 05:45 Lymph # 1.1 K/uL (1.0-4.3) 04/13/17 05:45 [place] # 0.4 K/uL (0.0-0.8) 04/13/17 05:45 Eos # 0.1 K/uL (0.0-0.7) 04/13/17 05:45 Baso # 0.0 K/uL (0.0-0.2) 04/13/17 05:45 Retic Count 1.3 % (0.5-1.5) 04/12/17 04:50 Hemoglobin A 96.6 Percent (>96.0) 04/12/17 04:50 Hemoglobin A2 2.4 Percent (1.8-3.5) 04/12/17 04:50 Hemoglobin C 0.0 Percent (0.0-0.0) 04/12/17 04:50 Hemoglobin F () <1.0 Percent (<2.0) 04/12/17 04:50 Hemoglobin S 0.0 Percent (0.0-0.0) 04/12/17 04:50 Variant Hemoglobin 0.0 Percent (0.0-0.0) 04/12/17 04:50 Hemoglobinopathy Red Blood Count 3.59 Mill/mcL (3.80-5.10) L 04/12/17 04:50 Hemoglobinopathy Hct 28.4 % (35.0-45.0) L 04/12/17 04:50 Hemoglobinopathy Hgb 9.2 g/dL (11.7-15.5) L 04/12/17 04:50 Hemoglobinopathy MCV 79.1 fL (80.0-100.0) L 04/12/17 04:50 Hemoglobinopathy MCH 25.7 pg (27.0-33.0) L 04/12/17 04:50 Hemoglobinopathy RDW 16.8 % (11.0-15.0) H 04/12/17 04:50 Hemoglobinopathy Interp See note 04/12/17 04:50 PT 12.8 Seconds (9.8-13.1) 04/11/17 00:14 INR 1.2 (0.9-1.2) 04/11/17 00:14 APTT 41.4 Seconds (25.6-37.1) H 04/11/17 00:14 Sodium 136 mmol/l (132-148) 04/13/17 05:45 Potassium 3.6 MMOL/L (3.6-5.0) 04/13/17 05:45 Chloride 102 mmol/L (98-107) 04/13/17 05:45 Carbon Dioxide 28 mmol/L (22-30) 04/13/17 05:45 Anion Gap 9 (10-20) L 04/13/17 05:45 BUN 13 mg/dl (7-17) 04/13/17 05:45 Creatinine 0.6 mg/dL (0.7-1.2) L 04/13/17 05:45 Est GFR ( Amer) > 60 04/13/17 05:45 Est GFR (Non-Af Amer) > 60 04/13/17 05:45 Random Glucose 163 mg/dL (65-105) H 04/13/17 05:45 Calcium 9.3 mg/dL (8.4-10.2) 04/13/17 05:45 Ferritin 48.7 ng/mL 04/12/17 04:50 Total Bilirubin 0.5 mg/dl (0.2-1.3) 04/13/17 05:45 AST 69 U/L (14-36) H D 04/13/17 05:45 ALT 63 U/L (9-52) H 04/13/17 05:45 Alkaline Phosphatase 154 U/L (38-126) H 04/13/17 05:45 Total Protein 8.3 G/DL (6.3-8.2) H 04/13/17 05:45 Total Protein (PEP) 7.8 g/dL (6.1-8.1) 04/12/17 04:50 Albumin 3.0 g/dL (3.5-5.0) L 04/13/17 05:45 Globulin 5.3 gm/dL (2.2-3.9) H 04/13/17 05:45 Albumin/Globulin Ratio 0.6 (1.0-2.1) L 04/13/17 05:45 Vitamin B12 675 pg/mL (239-931) 04/12/17 04:50 Folate > 20.0 ng/mL 04/12/17 04:50 Hepatitis A IgM Ab Negative (NEGATIVE) 04/11/17 13:50 Hep Bs Antigen Negative (NEGATIVE) 04/11/17 13:50 Hep B Core IgM Ab Negative (NEGATIVE) 04/11/17 13:50 Hepatitis C Antibody Negative (NEGATIVE) 04/11/17 13:50 HIV-1 Ab Rapid Screen Non reactive (NON REAC) 04/11/17 13:50 Blood Type O POSITIVE 04/11/17 00:17 Antibody Screen Negative 04/11/17 00:17 BBK History Checked Patient has bt 04/11/17 00:17
[2017-04-13 18:30] LABS: TOTAL PROTEIN, SERUM 7.8 g/dL (6.1-8.1)
[2017-04-14 05:16] LABS: HEMOGLOBIN F <1.0 Percent (<2.0)
[2017-04-14 10:05] LABS: KAPPA/LAMBDA FREE RATIO 1.14 (0.26-1.65)
[2017-04-15 04:47] LABS: BETA 1 GLOBULIN 0.5 g/dL (0.4-0.6); BETA 2 GLOBULIN 0.4 g/dL (0.2-0.5); GAMMA GLOBULIN 3.6 g/dL (0.8-1.7)
== END 2017-04-13 17:00 | disposition home or self-care (01) | DRG 468 ==
LOC: H.ER 21:41 → H.ERHOLD 04-11 03:33 → H.MEDSURG1 04-11 04:50
PROVIDERS: ADMIT Family Medicine; ATTEND Family Medicine
PROC: 0W3Q8ZZ Control Bleeding in Respiratory Tract, Via Natural or Artificial Opening Endoscopic (ICD-10-PCS; 2017-04-11)
PROC: 07DR3ZX Extraction of Iliac Bone Marrow, Percutaneous Approach, Diagnostic (ICD-10-PCS; principal; 2017-04-13)
DX: D61.818 Other pancytopenia (principal); D68.9 Coagulation defect, unspecified; D69.6 Thrombocytopenia, unspecified; R04.0 Epistaxis; I10 Essential (primary) hypertension; F41.9 Anxiety disorder, unspecified; M19.90 Unspecified osteoarthritis, unspecified site; Z87.891 Personal history of nicotine dependence